=== PATIENT | male | born 1950 | race Caucasian/White ===

== ENCOUNTER 2016-11-01 08:06 | Inpatient (IN) | payer OTHER, MEDICARE ==
[2016-10-26 15:22] LABS: HEMATOCRIT 40.8 % (40.0-51.0); HEMOGLOBIN 13.9 g/dL (13.6-17.8)
--- NOTE | ~2016-11-01 | PREOPHP ---
PreOp History and Physical [facility] [id number] [place]. [address] NAME: NEVIN LLAMAS : 52 STATUS : ADM IN PAT#: [id number] AGE: 66 ADM/REG DATE : 11/01/16 MR#: [id number] REPORT SERV DATE: 11/01/16 DICTATED BY: LINCOLN SCHWAB DATE: 11/01/16 REPORT STATUS : Draft TRANSCRIBED BY: NIKI DATE: 11/01/16 CHIEF COMPLAINT: Lower back pain. HISTORY OF PRESENT ILLNESS: The patient is a 66-year-old with intractable lower back pain, bilateral lower extremity pain, paresthesias, and weakness, failed conservative treatment. After discussion of risks and benefits, elected to proceed with surgical intervention. REVIEW OF SYSTEMS: He denies chest pain, shortness of breath, and bowel or bladder changes. ALLERGIES: DENIED. HOME MEDICATIONS: Include aspirin, Dexilant, gabapentin, omeprazole, oxycodone, simvastatin, and stool softener. FAMILY HISTORY: Noncontributory. PAST MEDICAL HISTORY: High cholesterol. PHYSICAL EXAMINATION: VITAL SIGNS: Height 5 feet 9 inches, weight 276, BMI of 40.8. GENERAL: The patient is healthy appearing. In no acute distress. PSYCH: Alert and oriented x3. Normal mood and affect. Gait is antalgic. VASCULAR: No extremity swelling. SPINE: Decreased lumbar motion. NEUROLOGIC: Strength in the lower extremities remains intact with 5/5 motor strength. No focal deficits. HEART: Regular rate and rhythm. LUNGS: Clear to auscultation. ABDOMEN: Soft, nontender, and nondistended with good bowel sounds. BREASTS AND RECTAL: Both deferred. IMAGING: I have reviewed the MRI. The patient is status post previous kyphoplasty at L3. The patient has diffuse disk disease throughout his lumbar spine, worse at the L4 through S1 level with endplate edema, facet arthrosis, and stenosis. ASSESSMENT: L4 through S1 disk disease and stenosis. Failed conservative treatment. After discussion of risks and benefits, the patient elects to proceed with surgical intervention. Consent was obtained. All questions were answered. The patient is ready to proceed with surgery. CAMERON/NIKI Lincoln Schwab DO PreOp History and Physical [address] [facility] [facility] [place] [address] NAME: NEVIN LLAMAS : 51 STATUS : ADM IN PAT#: [id number] AGE: 66 ADM/REG DATE : 11/01/16 MR#: [id number] REPORT SERV DATE: 11/01/16 DICTATED BY: LINCOLN SCHWAB DATE: 11/01/16 REPORT STATUS : Draft TRANSCRIBED BY: NIKI DATE: 11/01/16 / [id number] CC: Lincoln Schwab DO
--- NOTE | ~2016-11-01 | OP ---
Record Of Operation [facility] [address] [place]. [address] NAME: NEVIN LLAMAS : 52 STATUS : ADM IN PAT#: [id number] AGE: 66 ADM/REG DATE : 11/01/16 MR#: [id number] REPORT SERV DATE: 11/01/16 DICTATED BY: LINCOLN SCHWAB DATE: 11/01/16 REPORT STATUS : Draft TRANSCRIBED BY: MODL DATE: 11/01/16 DATE OF PROCEDURE: 11/01/2016 PREOPERATIVE DIAGNOSIS: L4 through S1 disk disease and stenosis, lumbar radiculopathy POSTOPERATIVE DIAGNOSIS: L4 through S1 disk disease and stenosis, lumbar radiculopathy PROCEDURE: 1. L4 through S1 open laminectomy and bilateral foraminotomies (done for stenosis in addition to that needed for the interbody fusion portion of the case). 2. L4 through S1 posterolateral fusion bilaterally, L4 through S1 posterior segmental spinal instrumentation using Medtronic pedicle screws, local morcellized autograft and allograft bone matrix, neuromonitoring, intraoperative O-arm CT scan with computer navigation. 3. Transforaminal lumbar interbody fusion L5-S1. SURGEON: Lincoln Schwab DO. ANESTHESIA: General. ESTIMATED BLOOD LOSS: 150 mL. COMPLICATIONS: None. INDICATIONS: The patient is a 66-year-old with intractable back and leg pain that failed conservative treatment. After discussion of risks and benefits, elected to proceed with surgical intervention. PROCEDURE IN DETAIL: I identified the patient in the holding area. Consent was obtained. Went to the operating room. Underwent general anesthesia with endotracheal intubation. Turned to prone position, prepped and draped in the usual sterile fashion. Operative safety pause was performed, and then we proceeded with surgery. A midline longitudinal incision was made. L4 down to S1 taking down the fascial layer. Paraspinous muscles subperiosteally elevated to the tips of the transverse processes. Self-retaining retractors were placed. The O-arm registration frame was placed on spinous process. O-arm was brought in for intraoperative CT scan. Computer registration materials were verified. Under computer guidance, pedicle screws were placed bilaterally at L4 through S1 from [employer]tronic. O-arm was brought back in to verify good placement of instrumentation. Rongeur was used to remove spinous processes and underlying lamina, L4 through S1 bilaterally. Kerrison removed remaining lamina, underlying ligamentum flavum, and performed foraminotomies bilaterally decompressing the L4 through S1 nerve roots bilaterally. Knife was used to incise the disk on the right at L5-S1. Disk space was prepared with curettes, rasp, and endplate cutters. Irrigation was performed. Local morcellized autograft and allograft bone matrix was packed into the L4-L5 disk space. No interbody cage was used due to the soft nature of the bone and for fear of subsidence of the cage. Rods were then selected, placed over the screws L4- S1 bilaterally. Set screws were placed and final tightened. A high-speed decorticating Record Of Operation [facility] [address] [place]. [address] NAME: NEVIN LLAMAS : 52 STATUS : ADM IN [facility]#: [id number] AGE: 66 ADM/REG DATE : 11/01/16 MR#: [id number] REPORT SERV DATE: 11/01/16 DICTATED BY: LINCOLN SCHWAB DATE: 11/01/16 REPORT STATUS : Draft TRANSCRIBED BY: NIKI DATE: 11/01/16 sinan was used to decorticate the remaining bony surfaces L4 through S1 bilaterally. Irrigation performed. Hemostasis achieved. Local morcellized autograft and allograft bone matrix were packed over the decorticated surfaces, L4 through S1 bilaterally. A subfascial drain was placed. A gram of vancomycin powder sprinkled over the surgical wound. Layered closure performed. Sterile dressings applied. The patient awoke and extubated, taken to the recovery room in stable condition. OPERATIVE FINDINGS: L4 to S1 disk disease and stenosis. No sustained neuromonitoring alerts occurred. CAMERON/NIKI Lincoln Schwab DO / [id number] CC: Lincoln Schwab DO
--- NOTE | ~2016-11-01 | CN ---
Consultation Report [facility] [address] [place]. [address] NAME: NEVIN LLAMAS : 52 STATUS : DIS IN PAT#: [id number] AGE: 66 ADM/REG DATE : 11/01/16 MR#: [id number] REPORT SERV DATE: 11/05/16 DICTATED BY: LAYNE IVEY DATE: 11/04/16 REPORT STATUS : Draft TRANSCRIBED BY: MODL DATE: 11/04/16 CONSULT NOTE DATE OF CONSULTATION: 11/03/2016 REASON FOR CONSULTATION: Blood pressure management and atypical pain under left arm per Dr. Bocanegra. HISTORY OF PRESENT ILLNESS: This is an awake, alert, and oriented, pleasant 66-year-old male, who was admitted to Dr. Bocanegra and has recently undergone L4-5 open laminectomy infusion/SSEP on 11/01/2016. He is currently postop day 2. We have been asked to evaluate him for persistent hypertension while here in the hospital and also for atypical pain under his left arm and the axilla region. He denies a history of hypertension and he also denies chest pain, palpitations, dyspnea, vision disturbances at this time. He complains of a mild generalized headache that is intermittent and self-limited and he also complains of intermittent pain under his left arm and the axilla region that is relieved with position change. PAST MEDICAL HISTORY: Significant for: 1. Lumbar compression fracture. 2. Colon polyps. 3. Plantar fasciitis. PAST SURGICAL HISTORY: Includes: 1. L4-L5 open laminectomy infusion, 11/01/2016. 2. Kyphoplasty. 3. Cholecystectomy. 4. Left shoulder bone spur removed, greater than 10 years ago. 5. Left foot bone spur surgery, greater than 10 years ago. 6. Left TKA, greater than 10 years ago. 7. Colonoscopy, 07/2016. The patient's PCP is Dr. Jennings. He has also seen Dr. Manzo at [facility] and he follows with Dr. Viera for Pain Management. SOCIAL HISTORY: The patient is retired from [employer] and currently lives with his . He denies alcohol, tobacco and illicit drug use. FAMILY HISTORY: His mother had a history of heart problems as well as hypertension and is . His father's medical history is unknown. He has 2 brothers and a sister with 1 brother who has hypertension. ALLERGIES: NO KNOWN ALLERGIES. Consultation Report [address] [place]. [address] NAME: NEVIN LLAMAS : 52 STATUS : DIS IN PAT#: [id number] AGE: 66 ADM/REG DATE : 11/01/16 MR#: [id number] REPORT SERV DATE: 11/05/16 DICTATED BY: LAYNE IVEY DATE: 11/04/16 REPORT STATUS : Draft TRANSCRIBED BY: NIKI DATE: 11/04/16 HOME MEDICATIONS: Include: 1. Aspirin 81 mg p.o. daily. 2. Vitamin D 1000 units p.o. daily. 3. Lunesta 3 mg p.o. every bedtime. 4. Neurontin 300 mg p.o. daily. 5. Oxycodone 15 mg p.o. q.6 hours p.r.n. 6. Stool softener 1 p.o. daily. REVIEW OF SYSTEMS: A complete 10-point review of systems was negative except as per HPI. PHYSICAL EXAMINATION: VITAL SIGNS: T 98.6, P 85, RR 20, BP 178/80, SpO2 97 on 1 L nasal cannula. GENERAL: Well-appearing male, in no acute distress. NEUROLOGIC: Awake, alert and oriented x3 without focal deficit. HEENT: Normocephalic, atraumatic without lymphadenopathy. NECK: Supple. No JVD. LUNGS: Clear to auscultation in all lung segura with normal respiratory effort. CV: Regular rate and rhythm. S1, S2 auscultated without murmur, rub, gallop or click. ABDOMEN: Soft, round, and nontender with hypoactive bowel sounds in all quadrants. No masses. EXTREMITIES: No cyanosis or edema. Cap refill within normal limits. PSYCH: Normal affect. SKIN: Clean, dry and intact with mucous membranes pink and moist. PERTINENT LABS: Include his most recent hemoglobin 11.7 and a hematocrit of 34.7. White count 14.6, and all electrolytes are unremarkable. PERTINENT IMAGING: His preoperative EKG done on 10/26/[address] Lauren indicated normal sinus rhythm at 67 beats per minute. ASSESSMENT AND PLAN: 1. Elevated blood pressure. This is an acute finding for which he has no history of same. We will provide p.r.n. coverage with IV medications with parameters. We will monitor his labs and offer pharmacologic as well as nonpharmacologic pain relief. We will monitor his condition and encourage him to have close followup with his primary care provider as an outpatient. This was discussed extensively with his as well as the patient and they both indicate understanding. 2. Constipation. This is acute on chronic. He does report a history of constipation taking [id number] MiraLAX regularly. We will add MiraLAX to his bowel regimen to help relieve constipation as he reports no bowel movement in 2 days. 3. Left axilla pain. Question whether this is musculoskeletal versus gas. We will encourage frequent position changes. Add to his bowel regimen as discussed above. Monitor his labs and vital signs. 4. Post laminectomy. This is acute. He is postop day 2. We will defer management of Consultation Report [address] [place]. [address] NAME: NEVIN LLAMAS : 52 STATUS : DIS IN PAT#: [id number] AGE: 66 ADM/REG DATE : 11/01/16 MR#: [id number] REPORT SERV DATE: 11/05/16 DICTATED BY: LAYNE IVEY DATE: 11/04/16 REPORT STATUS : Draft TRANSCRIBED BY: NIKI DATE: 11/04/16 this condition to the primary team. Thank you for this consult. We are pleased to follow this patient with you. This consult was completed through thorough review of [employer], old records, [employer], and current chart as well as thorough interview with the patient and . [facility]/NIKI Layne Ivey NP / [id number]
[~2016-11-01 08:06] MED LIST: ASAB PO; LUNESTA3 MG PO; NEUR300 PO; ROXICODONE15 MG PO; STOOL SOFTENER; VITAMIN D1000 UNI1 PO
[2016-11-01 12:51] LABS: BASOPHILS 0.1 %; BASOPHILS ABSOLUTE 0.01 10/3/uL (0.0-0.16); EOSINOPHILS 0.4 %; EOSINOPHILS ABSOLUTE 0.03 10/3/uL (0.0-0.53); HEMATOCRIT 35.8 % (40.0-51.0); HEMOGLOBIN 12.2 g/dL (13.6-17.8); IMMATURE GRANULOCYTES 0.5 %; IMMATURE GRANULOCYTES ABSOLUTE 0.04 10/3/uL (0.0-0.11); LYMPHOCYTES 25.1 %; MEAN CORPUS HGB CONC 34.1 g/dL (32.0-36.0); MONOCYTES 1.7 %; MONOCYTES ABSOLUTE 0.14 10/3/uL (0.21-1.20); NEUTROPHILS 72.2 %; NEUTROPHILS ABSOLUTE 6.05 10/3/uL (2.02-8.40); PLATELET COUNT 262 10/3/uL (150-400); RBC DISTRIBUTION WIDTH 13.6 % (12.0-16.0); RED CELL COUNT 4.21 10/6/uL (4.7-6.1); WHITE BLOOD CELLS 8.4 10/3/uL (4.5-10.5)
[2016-11-01 12:52] LABS: MANUAL DIFF NO %
[2016-11-01 13:01] LABS: BUN (BLOOD UREA NITROGEN) 18 MG/DL (6-23); CALCIUM, SERUM 8.3 MG/DL (8.5-10.4); CHLORIDE, SERUM 105 MMOL/L (96-112); CO2 (CARBON DIOXIDE) 27 MMOL/L (24-34); CREATININE 1.32 MG/DL (0.70-1.30); GFR AFRICAN AMERICAN 65 ML/MIN (>=60); GFR NON AFRICAN AMERICAN 56 ML/MIN (>=60); GLUCOSE, SERUM 168 MG/DL (60-99); POTASSIUM, SERUM 4.2 MMOL/L (3.5-5.3); SODIUM, SERUM 140 MMOL/L (135-148)
[2016-11-02 05:58] LABS: BASOPHILS 0 %; EOSINOPHILS 0.1 %; EOSINOPHILS ABSOLUTE 0.01 10/3/uL (0.0-0.53); HEMATOCRIT 34.7 % (40.0-51.0); HEMOGLOBIN 11.7 g/dL (13.6-17.8); IMMATURE GRANULOCYTES 0.4 %; IMMATURE GRANULOCYTES ABSOLUTE 0.06 10/3/uL (0.0-0.11); LYMPHOCYTES 8.5 %; LYMPHOCYTES ABSOLUTE 1.25 10/3/uL (0.67-4.30); MEAN CORPUS HGB CONC 33.7 g/dL (32.0-36.0); MEAN CORPUSCULAR HEMOGLOB 29.3 pg (26.0-34.0); MONOCYTES 5.7 %; MONOCYTES ABSOLUTE 0.84 10/3/uL (0.21-1.20); NEUTROPHILS 85.3 %; NEUTROPHILS ABSOLUTE 12.47 10/3/uL (2.02-8.40); PLATELET COUNT 282 10/3/uL (150-400); RBC DISTRIBUTION WIDTH 13.5 % (12.0-16.0); RED CELL COUNT 3.99 10/6/uL (4.7-6.1)
[2016-11-02 06:01] LABS: MANUAL DIFF NO %; WHITE BLOOD CELLS 14.6 10/3/uL (4.5-10.5)
[2016-11-02 06:06] LABS: BUN (BLOOD UREA NITROGEN) 15 MG/DL (6-23); CALCIUM, SERUM 8.8 MG/DL (8.5-10.4); CHLORIDE, SERUM 106 MMOL/L (96-112); CO2 (CARBON DIOXIDE) 27 MMOL/L (24-34); CREATININE 1.32 MG/DL (0.70-1.30); GFR AFRICAN AMERICAN 65 ML/MIN (>=60); GFR NON AFRICAN AMERICAN 56 ML/MIN (>=60); GLUCOSE, SERUM 147 MG/DL (60-99); POTASSIUM, SERUM 4.8 MMOL/L (3.5-5.3); SODIUM, SERUM 140 MMOL/L (135-148)
[2016-11-03 05:33] LABS: BASOPHILS 0.1 %; BASOPHILS ABSOLUTE 0.01 10/3/uL (0.0-0.16); EOSINOPHILS 0.3 %; EOSINOPHILS ABSOLUTE 0.04 10/3/uL (0.0-0.53); HEMATOCRIT 36.3 % (40.0-51.0); HEMOGLOBIN 12.3 g/dL (13.6-17.8); IMMATURE GRANULOCYTES 0.3 %; IMMATURE GRANULOCYTES ABSOLUTE 0.03 10/3/uL (0.0-0.11); LYMPHOCYTES 24.8 %; LYMPHOCYTES ABSOLUTE 2.91 10/3/uL (0.67-4.30); MANUAL DIFF NO %; MEAN CORPUS HGB CONC 33.9 g/dL (32.0-36.0); MEAN CORPUSCULAR HEMOGLOB 29.7 pg (26.0-34.0); MEAN CORPUSCULAR VOLUME 87.7 fL (80-100); MEAN PLATELET VOLUME 9.4 fL (9.2-13.0); MONOCYTES 6.7 %; MONOCYTES ABSOLUTE 0.79 10/3/uL (0.21-1.20); NEUTROPHILS 67.8 %; NEUTROPHILS ABSOLUTE 7.95 10/3/uL (2.02-8.40); PLATELET COUNT 290 10/3/uL (150-400); RBC DISTRIBUTION WIDTH 13.7 % (12.0-16.0); RED CELL COUNT 4.14 10/6/uL (4.7-6.1); WHITE BLOOD CELLS 11.7 10/3/uL (4.5-10.5)
[2016-11-03 05:39] LABS: BUN (BLOOD UREA NITROGEN) 18 MG/DL (6-23); CALCIUM, SERUM 8.9 MG/DL (8.5-10.4); CHLORIDE, SERUM 106 MMOL/L (96-112); CO2 (CARBON DIOXIDE) 25 MMOL/L (24-34); CREATININE 1.26 MG/DL (0.70-1.30); GFR AFRICAN AMERICAN 69 ML/MIN (>=60); GFR NON AFRICAN AMERICAN 59 ML/MIN (>=60); POTASSIUM, SERUM 4.2 MMOL/L (3.5-5.3); SODIUM, SERUM 140 MMOL/L (135-148)
[2016-11-03 05:40] LABS: GLUCOSE, SERUM 108 MG/DL (60-99)
[2016-11-03] MEDS ORDERED: FLEX PO (11:23)
== END 2016-11-03 13:07 | disposition home or self-care (01) | DRG 460 ==
LOC: SDC/OF 08:06 → PACU 12:34 → 3SO 13:34
PROVIDERS: Orthopaedic Surgery
PROC: 0SG0071 Fusion of Lumbar Vertebral Joint with Autologous Tissue Substitute, Posterior Approach, Posterior Column, Open Approach (ICD-10-PCS; principal; 2016-11-01 09:45)
PROC: 0SG3071 Fusion of Lumbosacral Joint with Autologous Tissue Substitute, Posterior Approach, Posterior Column, Open Approach (ICD-10-PCS; 2016-11-01 09:45)
PROC: 4A11X4G Monitoring of Peripheral Nervous Electrical Activity, Intraoperative, External Approach (ICD-10-PCS; 2016-11-01 09:45)
DX: M51.16 Intervertebral disc disorders with radiculopathy, lumbar region (principal)
CPT/HCPCS: 80048; 82962; 85014; 85018; 85025; 87641; 88304; 88311; 93005; 97116-GP; 97161-GP; 97530-GP; A9270-GY; C1713; C1776; G8978-CK-GP; G8979-CI-GP; J0360; J0690; J1170; J1644; J2250; J2270; J2405; J2710; J3010; J3370